=== PATIENT | female | born 1990 | race Caucasian/White ===

== ENCOUNTER 2019-09-07 22:23 | Outpatient (REF) | payer MEDICAID, SELFPAY ==
[2019-09-07 19:25] LABS: HCT 39.8 % (36.0-46.0); HGB 13.5 g/dL (12.0-15.5); Mean Corp. HGB Concentration 33.9 g/dL (32.0-36.0); Mean Corpuscular Hemoglobin 31.8 pg (27.0-33.0); Mean Corpuscular Volume 93.6 fL (80-95); Mean Platelet Volume 10.3 fL (8.0-11.0); Platelet Count 296 x1000/uL (130-400); RBC 4.25 m/cumm (4.00-5.20); RBC Distribution Width 12.9 % (11.7-14.6); White Blood Cell Count 10.66 k/cumm (4.4-10.8)
[2019-09-07 19:32] LABS: ALT 52 U/L (14-59); AST 39 U/L (15-37); Alkaline Phosphatase 81 U/L (46-116); Anion Gap 11.1 mmol/L (3-11); BUN 11 mg/dL (7-18); Bilirubin, Total 0.3 mg/dL (0.2-1.0); CO2 22.9 mmol/L (21.0-32.0); CREATININE 0.41 mg/dL (0.55-1.02); Calcium 9.2 mg/dL (8.5-10.1); Chloride 100 mmol/L (98-107); Glucose 74 mg/dL (74-106); Potassium 4.4 mmol/L (3.5-5.1); Sodium 134 mmol/L (136-145); Total Protein 6.7 g/dL (6.4-8.2)
[2019-09-07 22:15] LABS: PROTEIN 8.8 mg/dL
[2019-09-07 22:16] LABS: COMMENT (LAB VIEW ONLY) 44.55 mg/dL; Prot/Crea Ur Ratio 0.19
== END 2019-09-07 22:43 ==
LOC: LBN 22:23
PROVIDERS: Visit Provider Advanced Practice Midwife
DX: Z34.91 Encounter for supervision of normal pregnancy, unspecified, first trimester (principal)
CPT/HCPCS: 80053; 85027; 82565; 84156; 84550

== ENCOUNTER 2019-09-15 03:47 | Outpatient (CLI) | payer MEDICAID, SELFPAY ==
[2019-09-15 12:19] LABS: Glucose,1 Hr (Glucola) 105 mg/dL (80-140)
[2019-09-15 13:06] LABS: *AMPHETAMINES SCREEN URINE Negative (Negative); *BARBITURATES SCREEN URINE Negative (Negative); *BENZODIAZEPINES SCREEN URINE Negative (Negative); Cannabinoids THC Negative (Negative); Cocaine Screen,Urine Negative (Negative); METHADONE URINE SCREEN Negative (Negative); OPIATES URINE SCREEN Negative (Negative)
[2019-09-15 13:16] LABS: Tricyclic Antidepressants Negative (Negative)
[2019-09-15 13:35] LABS: ALT 35 U/L (14-59); AST 19 U/L (15-37); Albumin 2.8 g/dL (3.4-5.0); Alkaline Phosphatase 81 U/L (46-116); Anion Gap 8.4 mmol/L (3-11); BUN 7 mg/dL (7-18); Bilirubin, Total 0.3 mg/dL (0.2-1.0); CO2 24.6 mmol/L (21.0-32.0); CREATININE 0.51 mg/dL (0.55-1.02); Chloride 104 mmol/L (98-107); Glucose 96 mg/dL (74-106); Sodium 137 mmol/L (136-145)
[2019-09-16 11:50] LABS: Rubella IgG Ab (UVM) Negative (See Note); Varicella IgG Antibody Negative (See Note)
[2019-09-16 12:50] LABS: HIV-1/2 Ag & Ab Screen Negative (Negative); Hepatitis C Ab w Rflx HCV PCR Negative (Negative)
[2019-09-16 13:52] LABS: Hepatitis B Surface Ag Negative (Negative)
[2019-09-16 15:24] LABS: Syphilis Total Ab w/Reflex Nonreactive (Nonreactive)
[2019-09-26 01:53] LABS: Buprenorphine Negative
== END 2019-09-15 04:07 ==
PROVIDERS: Advanced Practice Midwife; Visit Provider Advanced Practice Midwife
DX: Z34.91 Encounter for supervision of normal pregnancy, unspecified, first trimester (principal); Z11.4 Encounter for screening for human immunodeficiency virus [HIV]; Z11.59 Encounter for screening for other viral diseases; Z01.84 Encounter for antibody response examination
CPT/HCPCS: 36415; 80053; 80307; 82950; 86787; 86803; 86850; 86900; 86901; 87340; 87389; 84443; 86762; 86780

== ENCOUNTER 2019-11-09 18:03 | Outpatient (REF) | payer MEDICAID, SELFPAY | END 2019-11-09 18:23 | LOC: LBN 18:03 | PROVIDERS: Visit Provider Advanced Practice Midwife | DX: Z34.90 Encounter for supervision of normal pregnancy, unspecified, unspecified trimester (principal) | CPT/HCPCS: 87081 ==

== ENCOUNTER 2019-11-25 01:45 | Outpatient (CLI) | payer MEDICAID, SELFPAY ==
--- NOTE | 2019-11-25 06:30 | DI.US_ITS ---
EXAM: US OB NI WEIGHT CLINICAL HISTORY: s<d,z34.90. TECHNIQUE: Transabdominal obstetrical ultrasound performed. COMPARISON: No exams were available for comparison FINDINGS: Transabdominal obstetrical ultrasound performed. FINDINGS: Number of fetuses: One. position: Cephalic Placental location: Anterior. No evidence of previa. BIOMETRIC DATA: EFW: 2950 grms 13% Composite Age: 37 weeks EDC: 12/16/2019 Heart Rate: 149BPM Amniotic fluid index: 5 cm. Visually, the amniotic fluid is lower limits of normal to below normal. IMPRESSION: 1. Single live intrauterine gestation as above. 2. Estimated weight is 2950gms. 3. Amniotic fluid index is 5 cm. Visually at the lower limits of normal to below normal. DATA REPOSITORY:
== END 2019-11-25 02:05 ==
PROVIDERS: Visit Provider Advanced Practice Midwife
DX: Z34.93 Encounter for supervision of normal pregnancy, unspecified, third trimester (principal)
CPT/HCPCS: 76816

== ENCOUNTER 2019-11-30 09:37 | Outpatient (CLI) | payer MEDICAID, SELFPAY ==
--- NOTE | 2019-11-30 | DI.US_ITS ---
EXAM: US OB NI UMBILICAL ARTERY CLINICAL HISTORY: Gestational hypertension. COMPARISON: No exams were available for comparison TECHNIQUE: Transabdominal obstetrical ultrasound performed. FINDINGS: Sonographic images demonstrate a single intrauterine gestation in cephalic position. Plancenta: Anterior, grade 2 Predicted gestational age: 39 weeks 5 days. Estimated date of delivery 02 December 2019: heart rate motion is Dopplered at: 158 BPM. Amniotic fluid index: 5.6 cm cm. Umbilical artery Doppler: 97/44 = S/D 2.2, PI 0.85, RI 0.55 96/48= S/D 2.0, PI 0.69, RI 0.50. The findings are within the normal range, near or below the 50th p ercentile. IMPRESSION: Umbilical artery Doppler measurements are within the normal range. DATA REPOSITORY:
== END 2019-11-30 09:57 ==
PROVIDERS: Visit Provider Advanced Practice Midwife
DX: O41.03X0 Oligohydramnios, third trimester, not applicable or unspecified (principal); Z3A.39 39 weeks gestation of pregnancy
CPT/HCPCS: 76816; 76820; 59025

== ENCOUNTER 2019-11-30 15:24 | Inpatient (IN) | payer MEDICAID, SELFPAY ==
[2019-11-30] MEDS: miSOPROStol 25 MCG TAB 50 MCG PO ×2 (19:15→23:25)
[2019-11-30 20:37] LABS: Abs Immature Grans 0.15 10^3/uL (0.0-0.06); Absolute Basophil Count 0.03 10^3/uL (0.0-0.2); Absolute Eosinophil Count 0.16 10^3/uL (0.0-0.7); Absolute Lymphocyte Count 2.03 10^3/uL (1.2-3.4); Absolute Monocyte Count 0.91 10^3/uL (0.1-0.8); Absolute Neutrophil Count 7.22 10^3/uL (1.2-6.7); Basophils % 0.3; Eosinophils % 1.5; HGB 13.8 g/dL (11.2-15.7); Immature Grans % 1.4; Lymphocytes % 19.3; MCH 32.9 pg (27.0-33.0); MCHC 35.4 % (32.0-36.0); MCV 93.1 fL (80-95); Monocytes % 8.7; Neutrophils % 68.8; Nucleated RBC 0 %; Platelet Count 277 10^3/uL (130-400); RBC 4.19 10^6/uL (3.93-5.22); RDW 12.4 % (11.7-14.6); RDW-SD 42.4 fL
[2019-11-30 20:59] LABS: ALT 17 U/L (14-59); AST 15 U/L (15-37); Albumin 2.6 g/dL (3.4-5.0); Alkaline Phosphatase 130 U/L (46-116); Anion Gap 11.8 mmol/L (3-11); BUN 14 mg/dL (7-18); Bilirubin, Total 0.2 mg/dL (0.2-1.0); CO2 22.2 mmol/L (21.0-32.0); CREATININE 0.57 mg/dL (0.55-1.02); Calcium 9.1 mg/dL (8.5-10.1); Chloride 103 mmol/L (98-107); Glucose 103 mg/dL (74-106); Potassium 3.9 mmol/L (3.5-5.1); Sodium 137 mmol/L (136-145); Total Protein 6.5 g/dL (6.4-8.2); Uric Acid 3.3 mg/dL (2.6-6.0)
[2019-11-30] MEDS: Zolpidem 5 MG TAB 10 MG PO (23:35)
[2019-12-01] MEDS: miSOPROStol 50 MCG TAB (07:44)
[2019-12-01] MEDS: Normal Saline Flush 10 ML SYR (11:14)
[2019-12-01] MEDS: Povidone-Iodine Soln. 118 ML BTL (11:15)
[2019-12-01] MEDS: miSOPROStol 50 MCG TAB PO (12:19)
[2019-12-01 13:02] LABS: PROTEIN 29.9 mg/dL
[2019-12-01 13:09] LABS: Prot/Crea Ur Ratio 0.24
[2019-12-01] MEDS: Normal Saline Flush 10 ML SYR IVP (19:15)
[2019-12-01] MEDS: Lactated Ringers 1,000 ML 125 ML IV (19:25)
[2019-12-01] MEDS: Oxytocin/Normal Saline 30 UNITS/500 ML BAG IV (20:20)
[2019-12-02 08:36] LABS: COVID-19 RT-PCR UVMMC Result Negative (Negative)
[2019-12-02] MEDS: fentaNYL 100 MCG/2 ML VIAL (09:09)
[2019-12-02] MEDS: Bupivacaine 0.25% Pres-Free 30 ML VIAL (09:10)
[2019-12-02] MEDS: FentaNYL/ROPIvacaine 2 mcg/ml and 0.1% 200 ML CADD Cassette EP ×2 (09:15→09:18)
[2019-12-02] MEDS: Ibuprofen 600 MG TAB PO (17:02)
[2019-12-02] MEDS: Normal Saline Flush 10 ML SYR IVP (17:57)
[2019-12-02] MEDS: Acetaminophen 325 MG TAB 650 MG PO (21:29)
[2019-12-02] MEDS: Hamamelis Leaf/Glycerin 100 EACH BOX PR (21:30)
[2019-12-03 08:00] LABS: HCT 36.5 % (36.0-46.0); HGB 12.2 g/dL (11.2-15.7); MCHC 33.4 % (32.0-36.0); MCV 95.8 fL (80-95); MPV 9.9 fL (8.0-11.0); Platelet Count 226 10^3/uL (130-400); RBC 3.81 10^6/uL (3.93-5.22); RDW 12.6 % (11.7-14.6); RDW-SD 43.3 fL; WBC 10.49 10^3/uL (4.4-10.8)
[2019-12-03] MEDS: Ibuprofen 600 MG TAB PO ×2 (09:05→15:59)
[2019-12-03] MEDS: Acetaminophen 325 MG TAB 650 MG PO ×2 (12:33→15:59)
[2019-12-03] MEDS: Docusate Sodium 100 MG CAP PO (15:59)
[2019-12-04] MEDS: Ibuprofen 600 MG TAB PO ×2 (02:26→08:08)
[2019-12-04] MEDS: Acetaminophen 325 MG TAB 650 MG PO (08:08)
== END 2019-12-04 11:25 | disposition home or self-care (01) | DRG 768 ==
PROVIDERS: Advanced Practice Midwife; Admitting Provider Advanced Practice Midwife; Visit Provider Advanced Practice Midwife
DX: O62.1 Secondary uterine inertia (principal); Z37.0 Single live birth; O41.03X0 Oligohydramnios, third trimester, not applicable or unspecified; Z3A.39 39 weeks gestation of pregnancy; O77.0 Labor and delivery complicated by meconium in amniotic fluid; O70.0 First degree perineal laceration during delivery; O76 Abnormality in fetal heart rate and rhythm complicating labor and delivery; Z11.59 Encounter for screening for other viral diseases; Z28.3 Underimmunization status; Z79.82 Long term (current) use of aspirin
CPT/HCPCS: 36415; 80053; 85027; 86850; 86900; 86901; U0003; 82565; 84156; 84550; 85025; J3010; J3490

== ENCOUNTER 2020-06-14 03:06 | Outpatient (CLI) | payer MEDICAID, SELFPAY ==
--- NOTE | 2020-06-14 | DI.US_ITS ---
EXAM: US PELVIS TRANSVAGINAL CLINICAL HISTORY: IUD CHECK,PELVIC PAIN, IUD MIGRATION,R10.2,T83.32XA,Z30.431. TECHNIQUE: Transabdominal and transvaginal pelvic ultrasound was performed using standard protocol. COMPARISON: No previous for comparison. FINDINGS: KIDNEYS: Kidneys are symmetric in size. No evidence of renal calculi. No evidence of hydronephrosis. No renal mass or cyst identified. UTERUS: Position: Anteverted. Size: 7.2 long by 3.7 AP by 4.3 transverse cm Endometrium: 1.0 cm. Normal for patient's menstrual status. There is an IUD in good position. Myometrium: Unremarkable. Cervix: Unremarkable. OVARIES: Right: 1.9 x 2.8 x 7.2 cm Cyst or mass: Small functional cysts are present. Left: 4.8 x 2.3 x 4.2 cm Cyst or mass: Functional cysts are present. The largest measures 1.7 cm. DOPPLER: Color: Symmetric and uniform flow to both ovaries. No hyperemia. Duplex: Normal ovarian arterial waveforms visualized. CUL-DE-SAC: Free fluid: None. Other: None. IMPRESSION: 1. Normal sonographic appearance of the kidneys. 2. Normal-appearing uterus with endometrial stripe within normal limits. 3. IUD is in good position. 4. Unremarkable bilateral ovaries. DATA REPOSITORY:
== END 2020-06-14 03:26 ==
PROVIDERS: Visit Provider Advanced Practice Midwife
DX: R10.2 Pelvic and perineal pain (principal); Z97.5 Presence of (intrauterine) contraceptive device
CPT/HCPCS: 76830; 76856

== ENCOUNTER 2020-12-14 12:31 | Emergency (ER) | payer MEDICAID, SELFPAY ==
[2020-12-14 12:38] VITALS: BP 143/73; PULSE 75; RESP 16; TEMP 36.6; O2SAT 97
[2020-12-14] MEDS: Ibuprofen 600 MG TAB PO (12:48)
--- NOTE | 2020-12-14 12:56 | W.ED.GENAD ---
Discharge Plan Disposition Patient Disposition: HOME Condition: Stable Discharge Details Clinical Impression: Sprain of ankle, left Primary Care Provider: Unknown,Unknown ED Provider: Emeka Malone Home Meds and New Rx's Prescriptions: Continued ParaGard T 380A 380 square mm intrauterine device 1 device intrauterine ONCE RF: 0 Discharge Instructions Instructions: Ankle Sprain (ED) Additional Instructions: you can take 1000mg tylenol and 600mg ibuprofen every 6 hours for pain as needed if you still have pain in a week follow up with a primary care provider if you have severe worsening pain or new pain such as chest pain or abdomen pain return to the emergency department Medical Decision Making 30 yo female comes in with left ankle pain. She states she was hiking and on the last stretch coming back down she tripped on a rock and inverted her ankle, denies loc or head trauma. Has no head pain, neck pain, chest or abdomen pain, only has pain in the left ankle. She has swelling of the lateral ankle, no pain over the metatarsals and is able to bear weight though with pain and can plantar flex fully so doubt achilles injury. Normal sensation and pulses. Suspect sprain vs fracture, will obtain xrays xray negative, remains stable and given she can bear weight do not feel ct indicated. Will place in walking boot and advised if pain continues to follow up with pcp Differential Diagnosis Differential Diagnosis: sprain, fracture, contusion Imaging Data Radiologic Study: Attestation: I personally reviewed and interpreted this imaging study as follows: Imaging: X-Ray Radiologist's impression: FINDINGS: Three views were obtained. There is no evidence of acute fracture or dislocation. The ankle mortise appears well maintained. IMPRESSION: HPI General Mode of arrival: ambulatory. Date/Time Provider Initiated Documentation: 12/14/20 12:33. Limitations to Documentation: no limitations. Information obtained by: patient. History of Present Illness 30 year old F presents to the emergency department with the chief complaint of left ankle pain, described as moderate, Quality is described as aching, and is localized to the left and lower extremity. Patient reports no radiation. Patient started experiencing this day(s) (1) and it has been constant. No relieving factors improve symptom(s), No exacerbating factors reported . Patient notes no other symptoms.. Patient did receive the following treatments prior to arrival, none Related Data Home Medications Medication Instructions Recorded Confirmed copper 380 square mm intrauterine 1 device INTRAUTERINE ONCE 05/23/20 12/14/20 device Allergies Allergy/AdvReac Type Severity Reaction Status Date / Time No Known Allergies Allergy Verified 12/14/20 12:41 General Stated Complaint: Orthopedic ED: 4 Review of Systems All systems reviewed & are unremarkable except as noted in HPI and below Constitutional Constitutional: Denies chills, Denies fever(s) and Denies weakness Cardiovascular Cardiovascular: Denies chest pain and Denies dyspnea Respiratory Respiratory: Denies cough and Denies dyspnea Gastrointestinal Gastrointestinal: Denies abdominal pain, Denies nausea and Denies vomiting Neurologic Neurologic: Denies weakness [facility] Medical History (Updated 12/14/20 @ 13:21 by Emeka Malone MD) 6 weeks follow-up 28 weeks gestation of Surgical History (Updated 09/07/19 @ 15:46 by Sangita Hitchcock CNM) H/O knee surgery Family History (Updated 09/07/19 @ 15:48 by Sangita Hitchcock CNM) Mother No problems noted. Father Substance abuse Maternal Grandmother Breast cancer Social History (Updated 11/30/19 @ 14:59 by Sangita Hitchcock CNM) Smoking/Tobacco Use Status: Never Second Hand Exposure: No Smoking risk assessment performed?: Yes Alcohol Intake: former Do you feel safe at home: Yes Do you feel safe in your relationship?: Yes History History 1 Para 1 Hx # Term Pregnancies 2 Multiple births Hx # Pregnancies Ectopic pregnancies AB induced Hx Number of Living Children 1 AB spontaneous Past Pregnancies Del. Date GA/Weeks # Outcome Route Wgt Sex Labor Lgth Anesthesia Location Prov Complic 12/02/19 40 No Successful vaginal 2693.205 g [facility] Hitchcock other Delivery Date: 12/02/19 Pt induced for oligohydramnios. Occasional early and variable decellerations occurred with resting. After sleep, she had pelvic pressure. Fully dilated with bulging bag of water. After 15 minutes, bag of water was visible at introitus--it was artificially ruptured as color appeared yellow. Moderate amount of meconium-stained fluid. FHR remained 120s in second stage with occasional variable decellerations with pushing. Baby boy delivered in MARK position. Small hymenal tear reapproximated with one suture. Bilateral periurethreal lacerations noted and left was repaired with 2 3-0 vicryl sutures under epidural analgesia. Placenta delivered spontaneously. De La Torre,Ronda Exam Const General: no acute distress Orientation: alert HENMT Head: normal to inspection Ears: external ears normal General nose exam: external nose normal Mouth: moist mucous membranes Eyes General: appearance normal, both eyes and all related structures Neck Neck: normal visual inspection Resp Effort & Inspection: normal respiratory effort and able to speak in complete sentences Cardio Rate: regular rate Skin General skin exam: no rashes or lesions noted Neuro General: patient alert and patient oriented x3 Extrem General: capillary refill normal Psych Mental Status: mental status grossly normal Course Vital Signs Vital signs: Vital Signs Temperature 36.6 C 12/14/20 12:38 Pulse 75 12/14/20 12:38 Respiratory Rate 16 12/14/20 12:38 Blood Pressure 143/73 H 12/14/20 12:38 Pulse Oximetry 97 12/14/20 12:38 Temperature 36.6 C 12/14/20 12:38 Temperature Source Skin 12/14/20 12:38 Pulse 75 12/14/20 12:38 Respiratory Rate 16 12/14/20 12:38 Respiratory Effort Non-Labored 12/14/20 12:38 Blood Pressure 143/73 H 12/14/20 12:38 Blood Pressure Position Sitting 12/14/20 12:38 Pulse Oximetry 97 12/14/20 12:38 Oxygen Delivery Method Room Air 12/14/20 12:38 Oxygen Flow Rate 0 12/14/20 12:38 Pain Level 8 12/14/20 12:49
--- NOTE | 2020-12-14 13:02 | DI.RAD_ITS ---
Exam(s) XR ANKLE LT COMPLETE EXAM: XR ANKLE LT COMPLETE CLINICAL HISTORY: pain s/p fall TECHNIQUE: COMPARISON: No exams were available for comparison FINDINGS: Three views were obtained. There is no evidence of acute fracture or dislocation. The ankle mortise appears well maintained. IMPRESSION: RADIATION DOSE DELIVERED: Total DLP
== END 2020-12-14 13:35 | disposition home or self-care (01) ==
LOC: ER 13:36
PROVIDERS: Emergency Provider Emergency Medicine
DX: S93.492A Sprain of other ligament of left ankle, initial encounter (principal); X50.1XXA Overexertion from prolonged static or awkward postures, initial encounter
CPT/HCPCS: 99283; 73610

== ENCOUNTER 2023-11-16 15:58 | Emergency (ER) | payer OTHER, SELFPAY ==
[2023-11-16 16:14] VITALS: BP 154/78; PULSE 88; RESP 16; TEMP 36.5; O2SAT 98
--- NOTE | 2023-11-16 16:30 | DI.RAD_ITS ---
Exam(s) XR KNEE RT 3V AP,LAT,NOLAN EXAM: XR KNEE RT 3V AP,LAT,NOLAN CLINICAL HISTORY: right knee pain. TECHNIQUE: 2D digital imaging was performed. Three views. COMPARISON: No exams were available for comparison FINDINGS: The exam is limited by the patient being unable to straighten the knee. The AP and notch views are s everely limited. No gross abnormality is seen on the lateral view. DATA REPOSITORY: RADIATION DOSE DELIVERED:
--- NOTE | 2023-11-16 19:12 | ED.GENADUL_ITS ---
Discharge Plan Disposition Patient Disposition: Home Condition: Stable Discharge Details Clinical Impression: Right knee pain Primary Care Provider: Unknown,Unknown ED Provider: Sj Slaughter Home Meds and New Rx's Prescriptions: No Action Plus Vitamin-Mineral 27 mg iron- 1 mg tablet 1 tab PO DAILY Qty: 90 5RF Patient Comments: IUD removed, will start when Discharge Instructions Instructions: Knee pain Additional Instructions: You were seen in the emergency department for your right knee pain, you have a history of prior meniscal repair your physical exam is consistent with meniscus injury, you cannot straighten your leg, we are providing you with a straight leg knee immobilizer on the off chance that your likely partial meniscal tear briefly resolves and you can straighten your leg, I recommend you place yourself in a straight leg knee brace at that time, I have provided you with crutches she can perform partial weightbearing as tolerated. Please use therapeutic dosing of Tylenol (acetamenophen) & Advil (ibuprofen) in an alternating fashion as follows: Take 1000mg of Tylenol every 6 hours without missing doses- that is 4 times per day. Half-Way in between the Tylenol dosings, take 400-600mg of Advil also on a 6 hour schedule, that is also 4 times per day. The daily maximum dosing of Tylenol is 4000mg, and the daily maximum dosing of Advil is 2400mg. This is safe to do for weeks. Please note that some common cold medications & prescription pain medications may contain acetamenophen and you need to read OTC drug labels and factor that in to maximum daily dosings. -You may substitute out ibuprofen for 440 mg of Aleve every 12 hours for 1 to 2 weeks and then pull back to 220 mg twice daily. Please rest, ice, compress and elevate the knee often, I have referred you to our orthopedic practice here at the hospital you should hear from them the next few days. Referrals: [facility] [Provider Group] Discharge Data Discharge Date/Time-TO BE ENTERED AT DEPARTURE: 11/16/23 19:55 HPI General Date/Time Provider Initiated Documentation: 11/16/23 16:24 . HPI Narrative: 33 year-old female presents to ED today by POV/wheelchair with a chief complaint of R knee pain- history of R lateral meniscus repair in youth, states her knee locked up on her withot trauma, having severe pain when she tries to extend the knee that causes nausea. Quality described as feels like her old meniscus injury, locks in certain positions, unable to straighten, no radiation to numbness/tingling, severe knee swelling, endorses severre pain with ambulation, is R-foot dominant, denies skin changes distally, no recent tick bites. Severity is described as 8/10 with ambulation. Palliating factors include icing it. Provoking factors include weight-bearing. Patient not anticoagulated. Related Data Home Medications ?Medication ?Instructions ?Recorded ?Confirmed vitamin no.180-ferrous 1 tab PO DAILY #90 tabs 10/02/23 11/16/23 fumarate 27 mg-folic acid 1 mg tablet ( Plus Vitamin-Mineral) Previous Rx's ?Medication ?Instructions ?Recorded vitamin no.180-ferrous 1 tab PO DAILY #90 tabs 10/02/23 fumarate 27 mg-folic acid 1 mg tablet ( Plus Vitamin-Mineral) Allergies Allergy/AdvReac Type Severity Reaction Status Date / Time No Known Allergies Allergy Verified 11/16/23 16:13 General Stated Complaint: Orthopedic ED: 4 Review of Systems All systems reviewed & are unremarkable except as noted in HPI and below Exam Narrative Exam Narrative: GENERAL APPEARANCE: Well-nourished, non-toxic, awake and alert, atraumatic, no acute distress. SKIN: Warm, pink, dry, intact, without rashes/lesions/ulcerations. HEAD: Normocephalic, atraumatic, normal hair distribution for gender/age. EYES: Normal conjunctiva, no exudates on lids/lashes. ENT: Nares patent, no circumoral cyanosis, no facial swelling NECK: Supple, trachea midline, painless cervical ROM. LUNGS/CHEST: Non-labored respirations, normal A/P diameter, symmetrical expansion, no chest wall deformity HEART (CV/PV): Regular rate, R dorsalis pedis pulse 2+, no peripheral edema, no JVD. ABDOMEN: Soft, non-distended, no guarding. MSK: Normal ROM, no swelling/deformity to bilateral UEs or LEs, moving all extremities without weakness, no cyanosis, spine midline without tenderness, normal curvature, Chay positive in the right knee, no ligamentous laxity with anterior drawer, no ligamentous laxity with varus valgus forces, diffuse joint line tenderness without overt swelling or warmth to touch, no pain with passive range of motion, neurovascularly intact distal NEURO: Mental Status AAOx4 - alert to person, place, time, events No facial droop, no forehead involvement. Motor: No focal weakness - strength 5/5 in bilateral UEs and LEs, proximal and distal, symmetric. Sensory: sensation intact to light touch globally. Gait normal: patient ambulated without ataxia into ED room. PSYCH: euthymic, cooperative, pleasant, appropriate speech Course Vital Signs Vital signs: Vital Signs Temperature 36.5 C 11/16/23 16:14 Pulse 88 11/16/23 16:14 Respiratory Rate 16 11/16/23 16:14 Blood Pressure 154/78 H 11/16/23 16:14 Pulse Oximetry 98 11/16/23 16:14 Temperature 36.5 C 11/16/23 16:14 Temperature Source Temporal Artery Scan 11/16/23 16:14 Pulse 88 11/16/23 16:14 Respiratory Rate 16 11/16/23 16:14 Respiratory Effort Normal, Non-Labored 11/16/23 16:15 Blood Pressure 154/78 H 11/16/23 16:14 Blood Pressure Position Sitting 11/16/23 16:14 Pulse Oximetry 98 11/16/23 16:14 Oxygen Delivery Method Room Air 11/16/23 16:14 Oxygen Flow Rate 0 11/16/23 16:14 Pain Level 8 11/16/23 16:14 Medical Decision Making This dictation utilizes [id number] dictation software and may contain unedited grammatical errors. 33 year-old female presents to ED today by POV/wheelchair with a chief complaint of R knee pain- history of R lateral meniscus repair in youth, states her knee locked up on her withot trauma, having severe pain when she tries to extend the knee that causes nausea. Quality described as feels like her old meniscus inj ury, locks in certain positions, unable to straighten, no radiation to numbness/tingling, severe knee swelling, endorses severre pain with ambulation, is R-foot dominant, denies skin changes distally, no recent tick bites. Severity is described as 8/10 with ambulation. Palliating factors include icing it. Provoking factors include weight-bearing. Patients' medical history: Prior history of of right meniscus surgery, underwent repair not meniscectomy. Family and social history: Noncontributory. Pertinent exam findings / vital signs include Chay positive in the right knee, no ligamentous laxity with anterior drawer, no ligamentous laxity with varus valgus forces, diffuse joint line tenderness without overt swelling or warmth to touch, no pain with passive range of motion, neurovascularly intact distal. Differential / pathologies of concern include fracture, sprain/strain, meniscus tear, internal knee injury, unlikely Lyme arthritis or septic arthritis. Diagnostic studies of: -XR R knee-no acute fracture seen. Interventions of: -Provided a knee immobilizer and crutches, advised the patient to obtain an [id number] knee immobilizer or knee sleeve if she could not straighten her leg but to use the 1 provided if she did have a brief resolution of her limited range of motion and knee locking to place it in extension and keep it immobilized, recommend RICE therapy and therapeutic dosing Tylenol and ibuprofen. ED Course/Assessment/Plan: 33-year-old female presents with right knee pain, history of right meniscus injury with meniscus repair to the lateral aspect of her right meniscus, do not suspect acute fracture or trauma, does not have any concerning findings for septic arthritis or Lyme arthritis, no vascular pathology suspected, I recommend the patient follow-up with orthopedics for likely arthroscopy or MRI, recommend RICE therapy and therapeutic dosing of Tylenol and ibuprofen and crutches for partial weightbearing as tolerated as well as provided knee immobilization, strict return criteria for severe increase in swelling and pain, pain with fever, warmth to touch to right knee with severe swelling. Findings not consistent with septic arthritis, Lyme arthritis, fracture, neurovascular compromise. Disposition of right knee pain. Patient verbalized understanding of the plan and return to ED criteria and engaged in shared decision making. Medical Records Medical records reviewed: Yes I reviewed the patient's medical records. Imaging Data Radiologic Study: Attestation: I personally reviewed and interpreted this imaging study as follows: Imaging: X-Ray Radiologist's impression: EXAM: XR KNEE RT 3V AP,LAT,NOLAN CLINICAL HISTORY: right knee pain. TECHNIQUE: 2D digital imaging was performed. Three views. COMPARISON: No exams were available for comparison FINDINGS: The exam is limited by the patient being unable to straighten the knee. The AP and notch views are severely limited. No gross abnormality is seen on the lateral view. Quality:SDOH Health Related Social Needs: No Data to Display PFSH All Active Problems (Updated 09/07/19 @ 15:46 by Sangita Hitchcock CNM) Right knee pain (Acute) Encounter for IUD removal (Acute) Sprain of ankle, left (Acute) IUD migration (Acute) Pelvic pain (Acute) disorder, condition (Acute) decreased milk supply Contraceptive management (Acute) H/O knee surgery (Acute) Medical History (Updated 11/16/23 @ 19:32 by BRENDA Masters) IUD check up 6 weeks follow-up 28 weeks gestation of Family History (Updated 09/07/19 @ 15:48 by Sangita Hitchcock CNM) Mother No problems noted. Father Substance abuse Maternal Grandmother Breast cancer Social History (Updated 11/30/19 @ 14:59 by Sangita Hitchcock CNM) Smoking/Tobacco Use Status: Never Second Hand Exposure: No Smoking risk assessment performed?: Yes Alcohol Intake: former Drug use: Never Substance use type: does not use Housing: house Do you feel safe at home: Yes Do you feel safe in your relationship?: Yes History History 2 Para 2 Hx # Term Pregnancies 2 Multiple births Hx # Pregnancies Ectopic pregnancies AB induced Hx Number of Living Children 1 AB spontaneous Past Pregnancies Del. Date GA/Weeks # Preg Succ Route Wgt Sex Labor Lgth Anesth esia Location [facility] 12/02/19 40 No vaginal 2693.205 g Male [facility] other [facility] other Delivery Date: 12/02/19 Last Updated by: Ronda De La Torre RN Pt induced for oligohydramnios. Occasional early and variable decellerations occurred with resting. After sleep, she had pelvic pressure. Fully dilated with bulging bag of water. After 15 minutes, bag of water was visible at introitus--it was artificially ruptured as color appeared yellow. Moderate amount of meconium-stained fluid. FHR remained 120s in second stage with occasional variable decellerations with pushing. Baby boy delivered in MARK position. Small hymenal tear reapproximated with one suture. Bilateral periurethreal lacerations noted and left was repaired with 2 3-0 vicryl sutures under epidural analgesia. Placenta delivered spontaneously.
[2023-11-16 19:54] VITALS: BP 148/78; PULSE 80; RESP 14; O2SAT 99
== END 2023-11-16 19:55 | disposition home or self-care (01) ==
PROVIDERS: Emergency Provider Physician Assistant
DX: M25.561 Pain in right knee (principal)
CPT/HCPCS: 73562; 99283

== ENCOUNTER 2023-11-20 00:24 | Outpatient (CLI) | payer OTHER, SELFPAY ==
--- NOTE | 2023-11-20 07:00 | DI.MRI_ITS ---
Exam(s) MR LOWER JOINT RT WO EXAM: MR LOWER JOINT RT WO CLINICAL HISTORY: R KNEE INJURY,tear lateral meniscus,s83.281a TECHNIQUE: Multiplanar multisequence MRI of the knee was performed. COMPARISON: CR XR KNEE RT 3V AP,LAT,NOLAN from 11/16/2023 FINDINGS: There is some motion artifact on the images and this patient was not able to be scanned using the ded icated knee coil as she could not straighten his leg adequately EFFUSION: There is a moderate-large size knee joint effusion. There is no Blair cyst in the poplitea l fossa. No obvious loose intra-articular bodies. MARROW:There is no evidence of fracture, bone contusion, nor osteochondral defects.. There are no si gnificant osseous lesions. PATELLOFEMORAL COMPARTMENT: The quadriceps tendon is intact. The patellar ligament is intact. There is no significant thinning of the retropatellar cartilage. No evidence of fissure nor signific ant focal chondral defect. No osteochondral defect at this level.There is no intraosseous signal to suggest recent patellar dislocation. There are no patellar retinacular tears. CRUCIATE LIGAMENTS: The anterior cruciate ligament is intact.The posterior cruciate ligament is intac t. MEDIAL COMPARTMENT/MEDIAL MENISCUS: There are no tears of the medial meniscus evident.. There are no chondral defects, osteochondral defects, subarticular marrow edema, nor osteophytes evid ent. MEDIAL COLLATERAL LIGAMENT: Intact LATERAL COMPARTMENT/LATERAL MENISCUS: There is prominent tear in the posterior horn of the lateral me niscus and the posterior horn is flipped anteriorly. There is some regularity of the anterior horn a lso evident..There are no chondral defects, osteochondral defects, subarticular marrow edema, nor ost eophytes evident. ILIOTIBIAL BAND: Intact LATERAL COLLATERAL LIGAMENT COMPLEX: Fibular collateral ligament exhibits some abnormal signal 1 cm a nancy the fibular head. Biceps femora is tendon appears intact. Popliteus tendon component appears i ntact. IMPRESSION: 1. The main findings are in the lateral compartment where the there is significant tearing of the lat eral meniscus with the posterior horn being torn and flipped anteriorly. Some regularity of the ante rior horn is also noted but without displacement. There are no tears of the medial meniscus. 2. No cruciate ligament tears nor tears of the MCL. 3. Some increased signal is noted in the region of the fibular collateral ligament but this may be re lated to the lack of optimal coil use (patient was unable to straighten leg adequately for use of ded icated knee coil). The biceps femora is component and popliteus tendon component of the LCL complex appear intact. 4. Joint effusion noted. No Blair cyst. No loose intra-articular bodies evident. No evidence of bone contusion. DATA REPOSITORY:
== END 2023-11-20 00:44 ==
PROVIDERS: Visit Provider Student in an Organized Health Care Education/Training Program
DX: S83.281A Other tear of lateral meniscus, current injury, right knee, initial encounter (principal); X58.XXXA Exposure to other specified factors, initial encounter
CPT/HCPCS: 73721

== ENCOUNTER 2023-11-27 07:15 | Day surgery (SDC) | payer OTHER, SELFPAY ==
[2023-11-27] VITALS (26 sets, daily range): BP systolic 124–145; BP diastolic 64–98; PULSE 60–86; RESP 8–20; TEMP 36.2–36.6; O2SAT 95–100; BMI 33.0
--- NOTE | 2023-11-27 07:10 | PDOC.DSDIS_ITS ---
Date of service: 11/27/23 Time of Service: 13:00 Discharge Plan Disposition Patient Disposition: Home Condition: Stable Discharge Details Attending Provider: Tony Giron Primary Care Provider: None,None Home Meds and New Rx's Prescriptions: New naproxen 250 mg tablet 250 - 500 mg PO BID PRNQty: 40 0RF Rx Instructions: take with a meal aspirin 81 mg tablet,delayed release (DR/EC) 81 mg PO DAILY 14 Days Qty: 14 0RF oxycodone 5 mg tablet 5 - 10 mg PO Q4H MDD 30 mg PRN (Reason: moderate to severe pain) Qty: 18 0RF Continued Plus Vitamin-Mineral 27 mg iron- 1 mg tablet 1 tab PO DAILY Qty: 90 5RF Patient Comments: IUD removed, will start when Discharge Instructions Additional Instructions: Surgery: Right knee arthroscopy with revision lateral meniscus repair (inside out & all inside), intercondylar microfracture as bone marrow stimulation, and medial femoral condyle chondroplasty Activity: Nonweightbearing with crutches for the next 2 weeks. Use knee brace for support while ambulatory. Seated/ non-weight bearing flexion 0-90 degrees maximum for 6 weeks. Restore full knee extension as soon as possible. Protected weight bearing in full extension-only for weeks 2-8 weeks. Use brace as needed to protect and maintain knee straight. 120 degrees maximum flexion for 8 weeks. Spin/bike after 10 weeks. No weighted deeper flexion (squats, lunges) for 12 weeks. CONSERVATIVE protocol. Prescriptions: Aspirin 81 mg take 1 daily to prevent a blood clot for 14 days, starting tomorrow Naproxen 250 mg take 1-2 every 12 hours with a meal as needed for moderate pain Oxycodone 5 mg take 1-2 every 4-6 hours as needed for severe pain You may use [id number] Tylenol (acetaminophen) as needed for mild pain. These pain medications may be taken all at once or in different combinations as needed. Also, recommend Colace (docusate) as a stool softener as surgery and pain medicine cause constipation. You may try [id number]-trigizo diphenhydramine (Benadryl) 25-50 mg nightly as a sleep aid Dressings: Leave dressing in place for 3 days. May then remove and leave open to air or cover incisions with Band-Aids. Leave the sticky Steri-Strips in place until they fall off or remove them after you shower. May shower after 5 days. Follow-up: 10-[address] Giron You may take off the leg compression stockings this evening at home. You may also leave them on a few days longer if you have a history of leg swelling or edema. Let us know right away if you develop any redness, drainage, fevers, chest pain, or trouble breathing. Do not drink alcohol or drive for at least 24 hours after anesthesia. Please call the office during business hours with any questions or concerns. Stand Alone Forms: Anesthesia Discharge Inst., Crutch Training Instructions, Stephanie Anthony (DSU) Referrals: Tony Giron MD [ [facility] STAFF PHYSICIAN] - 12/08/23 2:45 pm Discharge Orders Discharge Orders: Discharge Order (Routine); Ordered 11/27/23 Ordered By: Ceci West DS: Diagnosis Discharge Diagnosis (1) Tear of lateral meniscus of right knee: Status: Acute (2) Chondromalacia, right knee: Status: Acute
--- NOTE | 2023-11-27 07:20 | W.PM.OP ---
Date of service: 11/27/23 Time of Service: 10:00 Operative Note Operative Note DATE OF PROCEDURE: 11/27/23 PRE-OP DIAGNOSIS: Right knee 1. Recurrent bucket-handle lateral meniscus tear 2. Chondromalcia POST-OP DIAGNOSIS: same PROCEDURE: Right knee 1. Revision lateral meniscus repair, CPT #51871 2. Chondroplasty, CPT #08785: Medial femoral condyle 3. Intercondylar microfracture as bone marrow stimulation, CPT #28372 SURGEON: Tony Giron DRIER AND EVAPORATOR OPERATOR: Ceci West ANESTHESIA TYPE: Local By Surgeon and General LMA/ETT Refer to Anesthesia Record ESTIMATED BLOOD LOSS: 5 PATHOLOGY: none sent TOURNIQUET TIME: 0 Patient was transported to: PACU Patient's condition: stable Indications: Please see complete medical record for details. Findings: Exam under anesthesia: Readily full extension without any contracture or mechanical block to motion. Stable Carine. Stable varus valgus. Arthroscopic findings: Moderate anterior and suprapatellar synovitis. Mild patellofemoral chondromalacia. Isolated medial femoral condyle focal cartilage irregularity and small flap tearing. Moderate diffuse lateral compartment chondromalacia. Intact ACL. Apparent recurrent bucket-handle displaced lateral meniscus tear involving the majority of the posterior horn into the mid body. Old sutures posterior horn from previous repair. Reasonable displaced meniscal tissue quality although there was some degeneration more in the white zone. The displaced tissue was the majority of the red red-white and white zone with minimal peripheral capsular remnant. Procedure Description: In the operating room, general anesthesia was induced. The patient was positioned supine on the operating room table. All bony prominences were well-padded. Preoperative antibiotics were administered. The knee was prepped and draped in the usual sterile fashion. The correct patient, procedure, and side of the procedure were all verified prior to incision. Exam under anesthesia was performed. 10 cc of 0.25% bupivacaine containing epinephrine was infiltrated about the planned anteromedial and anterolateral knee arthroscopy portals. An additional 20 cc was infiltrated about the lateral previous inside out surgery site. The portals were established and a complete diagnostic arthroscopy was performed with relevant findings detailed above. The mechanical shaver was used to remove abundant synovium from the suprapatellar and anterior and to color areas. The torpedo shaver was then used to carefully complete a chondroplasty removing rough cartilage flaps about a small area of cartilage injury or irregularity and smoothing the remaining of the cartilage bed of the medial femoral condyle. The meniscus was readily reducible in the lateral compartment. The meniscus tissue was seemingly adequate. Although it was a recurrent tear, possibly relating to an incomplete healing from many years ago, the quality seems aviles on grasping and on reduction. It was not overly friable or degenerative. There were no progressive tears or complex nature through the displaced tissue. Without this part of the lateral meniscus, there would be almost none through the posterior horn into about the mid body. As there was already an incision from a prior inside-out repair, this was opened the distal portion and careful spreading done down to the capsule. There was some irregularity here from the prior capsular surgery and sutures. The peripheral margin and backside of meniscus tissue was thoroughly prepared for healing use the meniscus rasp as well as trephinated through the capsular area using the repair needle. Previous prominent knots and suture arthroscopically were removed with the shaver. Retractors were placed to protect the peroneal nerve with the auction assistant catching the needles which were delivered using the [employer] zone navigator system through the contralateral portal. In total, they were 3 vertical mattress sutures placed through the body to the posterior horn junction about anterior to the popliteus. With an additional central horizontal mattress place and sutures tied on the capsular side outside the knee. To complete repair of the posterior horn an additional 2 all inside fiber stitch devices were used with oblique configuration done to reduce and compress the meniscus posteriorly. There was good reduction and stable fixation of the meniscus on testing. The knee was copiously irrigated with arthroscopic fluid. Lastly, in order to optimize healing in this isolated and revision meniscus repair. The lateral wall anterior to the ACL was debrided with a small notchplasty and then multiple drilling done with the power pick as a microfracture for bone marrow stimulation. There was excellent bleeding from this area with inflow turned off. The knee was drained of arthroscopic fluid. The anteromedial and anterolateral portals were closed in 3-0 Monocryl in a buried interrupted fashion. 2-0 Monocryl buried interrupted followed by 3-0 Monocryl subcuticular running was used to close the lateral incision. Mastisol, Steri-Strips, and 4 x 4 gauze were applied over the incisions. The knee was then wrapped gently with an TATI comressive bandage. A knee immobilizer was placed with the knee in extension. The patient awoke from anesthesia without complication and was transferred to the recovery room in a stable condition.
[2023-11-27] MEDS: Lactated Ringers 1,000 ML 30 ML IV (08:02)
--- NOTE | 2023-11-27 08:28 | ANES.PREOP_ITS ---
General Info Date of Service Date Performed: 11/27/23 Height: 6 ft Weight: 110.6 kg Body Mass Index (BMI): 33.0 Surgical Procedure: Operation Date: 11/27/23 09:10 Proposed Procedure Side Surgeon p Knee Arthroscopy, Possible Lateral Meniscus Repair Right Tony Giron MD Meds Allergies and Home Medications Allergies Allergy/AdvReac Type Severity Reaction Status Date / Time No Known Allergies Allergy Verified 11/27/23 07:40 Home Medication ?Medication ?Instructions ?Recorded vitamin no.180-ferrous 1 tab PO DAILY #90 tabs 10/02/23 fumarate 27 mg-folic acid 1 mg tablet ( Plus Vitamin-Mineral) Current Visit Medications: Current Medications Generic Name Dose Route Start Last Admin Trade Name Freq PRN Reason Stop Dose Admin Acetaminophen 1,000 mg 11/27/23 07:20 Acetaminophen 500 Mg Tab PO 12/27/23 07:19 Q6H PRN PRN Droperidol 0.625 mg 11/27/23 08:16 Droperidol 5 Mg/2 Ml Vial IVP 12/27/23 08:15 DIRECTED PRN Nausea Ephedrine Sulfate 0 mg 11/27/23 08:16 Ephedrine 25 Mg/5 Ml Syringe IVP 12/27/23 08:15 DIRECTED PRN Fentanyl 0 mcg 11/27/23 08:16 Fentanyl 100 Mcg/2 Ml Vial IVP 12/27/23 08:15 DIRECTED PRN Hydromorphone HCl 0 mg 11/27/23 08:16 Hydromorphone 2 Mg/Ml Syr IVP 12/27/23 08:15 DIRECTED PRN Ringer's Solution 1,000 mls @ 30 mls/hr 11/27/23 06:00 11/27/23 08:02 IV 11/27/23 23:59 30 mls/hr INFUSION ARCENIO Administration Cefazolin Sodium/Dextrose 2 gm in 50 mls @ 100 mls/hr 11/27/23 06:00 Ancef Duplex IVPB 11/27/23 23:59 PREOP ARCENIO Tranexamic Acid/Sodium Chloride 1,000 mg in 100 mls @ 600 mls/hr 11/27/23 06:00 IVPB 11/27/23 23:59 PREOP ARCENIO IV Miscellaneous Supplies 1 each 11/27/23 06:00 Iv Access IV 11/27/23 23:59 DIRECTED ARCENIO Naloxone HCl 0 mg 11/27/23 08:16 Naloxone 0.4 Mg/Ml Vial IVP 12/27/23 08:15 PRN PRN Naproxen 250 - 500 mg 11/27/23 07:27 Naproxen 250 Mg Tab PO 12/27/23 07:26 BID PRN PRN Oxycodone HCl 0 mg 11/27/23 07:09 Oxycodone 5 Mg Tab PO 12/27/23 07:08 Q3H PRN PRN Pain Sodium Chloride 0 ml 11/27/23 06:00 Normal Saline Flush 10 Ml Syr IV 11/27/23 23:59 PRN PRN Sodium Chloride 0 ml 11/27/23 06:00 Normal Saline 10 Ml Vial IJ 11/27/23 23:59 DIRECTED PRN Sterile Water 0 ml 11/27/23 06:00 Water,Injection,Sterile 10 Ml Vial IJ 11/27/23 23:59 DIRECTED PRN PFSH Active Problems Active Problems: Problem Status Onset Code Tear of lateral meniscus of right knee Acute 11/16/23 S83.281A Right knee pain Acute M25.561 Encounter for IUD removal Acute Z30.432 Sprain of ankle, left Acute S93.402A IUD migration Acute T83.32XA Pelvic pain Acute R10.2 disorder, condition Acute O92.79 Contraceptive management Acute Z30.9 H/O knee surgery Acute Z98.890 Medical History Medical History IUD check up 6 weeks follow-up 28 weeks gestation of Tobacco Smoking/Tobacco Use Status: Never Second hand exposure: No Alcohol Alcohol Intake: current Alcohol intake frequency: holidays/special occasions only Substance Use Substance use: Never Substance use type: does not use Prental History History 2 Para 2 Hx # Term Pregnancies 2 Multiple births Hx # Pregnancies Ectopic pregnancies AB induced Hx Number of Living Children 1 AB spontaneous Past Pregnancies Del. Date GA/Weeks # Preg Succ Route Wgt Sex Labor Lgth Anesth esia Location [facility] 12/02/19 40 No vaginal 2693.205 g [facility] other Delivery Date: 12/02/19 Last Updated by: Ronda De La Torre RN Pt induced for oligohydramnios. Occasional early and variable decellerations occurred with resting. After sleep, she had pelvic pressure. Fully dilated with bulging bag of water. After 15 minutes, bag of water was visible at introitus--it was artificially ruptured as color appeared yellow. Moderate amount of meconium-stained fluid. FHR remained 120s in second stage with occasional variable decellerations with pushing. Baby boy delivered in MARK position. Small hymenal tear reapproximated with one suture. Bilateral periurethreal lacerations noted and left was repaired with 2 3-0 vicryl sutures under epidural analgesia. Placenta delivered spontaneously. Vital Signs and Lab Results Vital Signs Most Recent Vital Signs in EMR: Most Recent Vital Signs Temp Pulse Resp BP Pulse Ox 36.5 C 79 20 129/88 98 11/27/23 07:40 11/27/23 07:40 11/27/23 07:40 11/27/23 07:40 11/27/23 07:40 Point of Care Results Point of Care Results: POC- Test(urine) Negative 11/27/23 07:53 Lab Results Blood Type / Crossmatch: No Data to Display Complete Blood Count: 2 No Data to Display Complete Metabolic Panel: No Data to Display Liver Function Panel: No Data to Display Coagulation Panel: No Data to Display Cardiac Panel: No Data to Display Arterial Blood Gas: No Data to Display Venous Blood Gas: No Data to Display Pancreas Panel: No Data to Display Thyroid Panel: No Data to Display Infectious Disease: No Data to Display Blood Cultures: No Data to Display Toxicology Panel: No Data to Display Panel: No Data to Display Anesthesia Assessment and Plan Anesthesia History Personal History: No History of Anesthesia Complications Family History: No Family History of Anesthesia Complications Exercise Tolerance Exercise Tolerance: Metabolic Equivalents>4 Pertinent Negatives Pertinent Negatives: No Symptoms of GERD Cardiac & Pulmonary Exam Cardiac Exam: Normal S1/S2 Heart Sounds Pulmonary Exam: Clear Bilateral Breath Sounds Implantable Cardiac Device Does patient have a Pacemaker or an ICD?: No Airway Exam Known Difficult Airway: No Mallampati Class: 2 Mouth Opening: Normal (> 3cm) Thyromental Distance: Greater than 3 cm Neck Range of Motion: Full ROM Neck Circumference: Normal Teeth Condition: Normal Dentition ASA Classification ASA Score: ASA 2 Emergency Case?: No NPO Status NPO Status: NPO Clears >2 hours, Solids >8 hours Status Status: Negative HCG Anesthesia Plan Resuscitation Status: Full Code Anesthesia Technique: General Anesthesia Airway Planned: LMA Monitors Used: Standard Monitors
[2023-11-27] MEDS: ceFAZolin 2 GM/50 ML BAG IVPB (09:12)
[2023-11-27] MEDS: TRANEXAMIC ACID/SOD. CHL. 1,000 MG/100 ML BAG 600 MG IVPB (09:20)
[2023-11-27] MEDS: Bupivacaine 0.25% Pres-Free W/EPI 30 ML VIAL (09:40)
[2023-11-27] MEDS: EPINEPHrine 10 MG/10 ML ML (09:41)
[2023-11-27] MEDS: HYDROmorphone 2 MG/ML SYR IVP ×2 (12:01→12:13)
--- NOTE | 2023-11-27 13:16 | W.ANESPOSTOP ---
Postoperative Evaluation Date, Time and Location Date Performed: 11/27/23 Time Performed: 13:16 Patient Location: Day Surgery Unit Vital Signs Most Recent Imported Vital Signs: Most Recent Vital Signs Temp Pulse Resp BP Pulse Ox 36.2 C L 69 16 129/75 100 11/27/23 12:46 11/27/23 12:46 11/27/23 12:46 11/27/23 12:46 11/27/23 12:46 Pain Score Most Recent Pain Score: Most Recent Pain Score Pain Level 7 11/27/23 12:46 Assessment Mental Status: Awake (Alert & Oriented to Patient Baseline) Airway and Respiratory Function: Patent airway with normal (patient baseline) respiratory exam Cardiovascular Function: Hemodynamically Stable Hydration Status: Adequately Hydrated Nausea & Vomiting: No Nausea or Vomiting Pain: Pain is tolerable per patient Peripheral Nerve Block: Patient did not receive a nerve block
== END 2023-11-27 14:10 | disposition home or self-care (01) ==
LOC: SUR 07:16
PROVIDERS: Visit Provider Student in an Organized Health Care Education/Training Program
PROC: (CPT 29870; principal; 2023-11-27 09:00)
DX: S83.281A Other tear of lateral meniscus, current injury, right knee, initial encounter (principal); M94.261 Chondromalacia, right knee; X50.0XXA Overexertion from strenuous movement or load, initial encounter; Y99.0 Civilian activity done for income or pay
CPT/HCPCS: 29882; 29879; 81025; J0131; J0690; J1100; J1170; J1885; J2001; J2250; J2270; J2405; J2704; J3010

== ENCOUNTER 2024-07-07 16:16 | Outpatient (REF) | payer OTHER, SELFPAY | END 2024-07-07 16:17 | disposition home or self-care (01) | LOC: LBN 16:16 | PROVIDERS: Visit Provider Advanced Practice Midwife | DX: O26.891 Other specified pregnancy related conditions, first trimester (principal); R10.2 Pelvic and perineal pain; Z34.91 Encounter for supervision of normal pregnancy, unspecified, first trimester | CPT/HCPCS: 87086 ==

== ENCOUNTER 2024-08-12 02:51 | Outpatient (CLI) | payer MEDICAID, SELFPAY ==
[2024-08-12 14:41] LABS: Panorama Kit Sent via Fed Ex
[2024-08-12 14:48] LABS: Abs Immature Grans 0.03 10^3/uL (0.0-0.06); Absolute Basophil Count 0.03 10^3/uL (0.0-0.2); Absolute Eosinophil Count 0.11 10^3/uL (0.0-0.7); Absolute Lymphocyte Count 1.64 10^3/uL (1.2-3.4); Absolute Monocyte Count 0.43 10^3/uL (0.1-0.8); Absolute Neutrophil Count 5.18 10^3/uL (1.2-6.7); Basophils % 0.4 %; Eosinophils % 1.5 %; HCT 37.8 % (36.0-46.0); HGB 13.2 g/dL (11.2-15.7); Immature Grans % 0.4 %; Lymphocytes % 22.1 %; MCH 31.4 pg (27.0-33.0); MCHC 34.9 % (32.0-36.0); MCV 90 fL (80-95); Monocytes % 5.8 %; Neutrophils % 69.8 %; Platelet Count 313 10^3/uL (130-400); RBC 4.21 10^6/uL (3.93-5.22); RDW-SD 39.1 fL; WBC 7.42 10^3/uL (4.4-10.8)
[2024-08-12 15:43] LABS: TSH (W/Ref FT4) 0.71 uIU/mL (0.36-3.74)
[2024-08-13 08:48] LABS: HIV-1/2 Ag & Ab Screen Negative (Negative)
[2024-08-15 10:27] LABS: Hepatitis C Ab w Rflx HCV PCR Negative (Negative)
[2024-08-15 11:06] LABS: Varicella IgG Antibody Negative (See Note)
[2024-08-15 11:30] LABS: Rubella IgG Ab (UVM) Negative (See Note)
[2024-08-15 12:54] LABS: Hepatitis B Surface Ag Negative (Negative)
[2024-08-16 13:36] LABS: Syphilis IgG w/Reflex Nonreactive (Nonreactive)
[2024-08-22 13:04] LABS: Result Summary NEGATIVE; Specimen WB Whole Blood
== END 2024-08-12 02:52 | disposition home or self-care (01) ==
LOC: LBO 02:51
PROVIDERS: Visit Provider Advanced Practice Midwife
DX: Z34.91 Encounter for supervision of normal pregnancy, unspecified, first trimester (principal)
CPT/HCPCS: 36415; 81220; 81222; 86787; 86803; 86850; 86900; 86901; 87340; 87389; 83036; 84443; 85025; 86762; 86780

== ENCOUNTER 2024-08-12 14:07 | Outpatient (REF) | payer MEDICAID, SELFPAY ==
[2024-08-12 17:45] LABS: *AMPHETAMINES SCREEN URINE Negative (Negative); *BARBITURATES SCREEN URINE Negative (Negative); *BENZODIAZEPINES SCREEN URINE Negative (Negative); Cannabinoids THC Negative (Negative); Cocaine Screen,Urine Negative (Negative); METHADONE URINE SCREEN Negative (Negative); OPIATES URINE SCREEN Negative (Negative)
[2024-08-12 17:52] LABS: Tricyclic Antidepressants Negative (Negative)
[2024-08-15 10:06] LABS: Fentanyl Scr w/Rfx Confirm Negative ng/mL (<1)
[2024-08-15 12:29] LABS: Chlamydia Result Negative (Negative); GC Result Negative (Negative)
[2024-08-18 10:15] LABS: Buprenorphine Negative ng/mL (Cutoff: 5.0); Norbuprenorphine Negative ng/mL (Cutoff: 2.5)
== END 2024-08-12 14:08 | disposition home or self-care (01) ==
LOC: LBN 14:07
PROVIDERS: Visit Provider Advanced Practice Midwife
DX: Z34.91 Encounter for supervision of normal pregnancy, unspecified, first trimester (principal)
CPT/HCPCS: 80307; 80348; 87491; 87591; 87086

== ENCOUNTER 2024-10-03 02:40 | Outpatient (CLI) | payer MEDICAID, SELFPAY ==
--- NOTE | 2024-10-03 11:45 | DI.US_ITS ---
Exam(s) US OB 2-3 TRIMESTER EXAM: US OB 2-3 TRIMESTER CLINICAL HISTORY: 19 wk anatomy survey,z34.90. TECHNIQUE: Transabdominal and transvaginal obstetrical ultrasound performed. COMPARISON: US US OB 1ST TRIMESTER from 07/07/2024 FINDINGS: Number of fetuses: 1 position: CEPHALIC Placental location: POSTERIOR low lying placenta with tip measuring 1.5 cm to the internal os. BIOMETRIC DATA: BPD: 4.49cm, 19weeks 4days HC: 16.85cm, 19weeks 3days AC: 13.21cm, 18weeks 5days FL: 3.53cm, 21weeks 1day Cisterna magna: 4mm Cerebellum: 1.98cm Lateral ventricle: 6.2 EFW: 314.74g, 0.66lb, 97% Composite Age: 19weeks 5days MENA: 02/22/2025 Heart Rate: 153bpm Amniotic fluid i: Amount of fluid visually is within normal limits. ANATOMICAL SURVEY: Four-chambered heart: Unremarkable. LVOT: Unremarkable. RVOT: Unremarkable. Left-sided stomach: Unremarkable. urinary bladder: Unremarkable. Bilateral kidneys: Unremarkable. Three-vessel cord: Unremarkable. Cord insertion: Unremarkable. Posterior fossa:Unremarkable. ventricles: Unremarkable. nose: Unremarkable. lips: Unremarkable. palate: Unremarkable. spine: Unremarkable. Two arms and two legs: Unremarkable. IMPRESSION: 1. Single live intrauterine gestation with composite age of 19 weeks 5 days. 2. Normal anatomic survey. 3. Low lying placenta. DATA REPOSITORY:
== END 2024-10-03 03:00 ==
LOC: DI 02:40
PROVIDERS: Visit Provider Advanced Practice Midwife
DX: Z34.92 Encounter for supervision of normal pregnancy, unspecified, second trimester (principal); Z3A.19 19 weeks gestation of pregnancy
CPT/HCPCS: 76805

== ENCOUNTER 2024-12-02 15:25 | Outpatient (REF) | payer MEDICAID, SELFPAY ==
[2024-12-02 17:45] LABS: Cannabinoids THC Negative (Negative); METHADONE URINE SCREEN Negative (Negative)
[2024-12-05 11:56] LABS: Fentanyl Scr w/Rfx Confirm Negative ng/mL (<1)
== END 2024-12-02 15:26 | disposition home or self-care (01) ==
LOC: LBN 15:25
PROVIDERS: Visit Provider Advanced Practice Midwife
DX: Z34.93 Encounter for supervision of normal pregnancy, unspecified, third trimester (principal); Z3A.28 28 weeks gestation of pregnancy
CPT/HCPCS: 80307; 80348

== ENCOUNTER 2024-12-07 02:21 | Outpatient (CLI) | payer MEDICAID, SELFPAY ==
[2024-12-07 11:52] LABS: HCT 36.0 % (36.0-46.0); HGB 12.2 g/dL (11.2-15.7); MCH 31.0 pg (27.0-33.0); MCHC 33.9 % (32.0-36.0); MCV 91 fL (80-95); MPV 8.9 fL (8.0-11.0); Platelet Count 261 10^3/uL (130-400); RBC 3.94 10^6/uL (3.93-5.22); RDW 12.8 % (11.7-14.6); RDW-SD 41.5 fL; WBC 9.12 10^3/uL (4.4-10.8)
[2024-12-07 12:01] LABS: Glucose,1 Hr (Glucola) 97 mg/dL (80-140)
== END 2024-12-07 02:22 | disposition home or self-care (01) ==
LOC: LBO 02:22
PROVIDERS: Advanced Practice Midwife; Visit Provider Advanced Practice Midwife
DX: Z34.92 Encounter for supervision of normal pregnancy, unspecified, second trimester (principal)
CPT/HCPCS: 36415; 82950; 85027

== ENCOUNTER 2024-12-14 14:20 | Outpatient (CLI) | payer MEDICAID, SELFPAY ==
--- NOTE | 2024-12-14 11:50 | DI.US_ITS ---
Exam(s) US OB NI WEIGHT EXAM: US OB NI WEIGHT CLINICAL HISTORY: interval growth O44.42 LOW LYING PLACENTA O09.299 Z34.90. TECHNIQUE: Transabdominal obstetrical ultrasound performed. COMPARISON: US US OB 2-3 TRIMESTER from 10/03/2024 FINDINGS: Number of fetuses: 1 position: CEPHALIC Placental location: There is a grade 1 posterior placenta. The placental tip is greater than 8 cm from the internal os. No evidence of previa. BIOMETRIC DATA: BPD: 7.58cm, 30weeks 3days HC: 28.29cm, 31weeks AC: 25.84cm, 30weeks FL: 6.23cm, 32weeks 2days EFW: 1,653.39g, 3lb 9.37oz, 57.8% Composite Age: 31weeks MENA: 02/15/2025 Heart Rate: 136bpm Amniotic fluid index: 14.95cm. The largest pocket measures 4.8 cm. IMPRESSION: 1. Single live intrauterine gestation as above. 2. There is no evidence of a low-lying placenta. 3. Estimated weight is 1653gms. This is the 58th percentile. 4. Amniotic fluid index is 15 cm. The largest pocket measures 4.8 cm. DATA REPOSITORY:
== END 2024-12-14 14:40 ==
LOC: DI 14:21
PROVIDERS: Visit Provider Advanced Practice Midwife
DX: O44.43 Low lying placenta NOS or without hemorrhage, third trimester (principal); O09.293 Supervision of pregnancy with other poor reproductive or obstetric history, third trimester; Z3A.30 30 weeks gestation of pregnancy
CPT/HCPCS: 76816

== ENCOUNTER 2025-01-20 11:03 | Outpatient (REF) | payer MEDICAID, SELFPAY | END 2025-01-20 11:04 | disposition home or self-care (01) | LOC: LBN 11:03 | PROVIDERS: Visit Provider Advanced Practice Midwife | DX: Z34.93 Encounter for supervision of normal pregnancy, unspecified, third trimester (principal) | CPT/HCPCS: 87081 ==

== ENCOUNTER 2025-02-27 07:42 | Outpatient (CLI) | payer MEDICAID, SELFPAY ==
[2025-02-27 12:57] VITALS: BP 133/83; PULSE 87
[2025-02-27 13:15] VITALS: BP 133/83; PULSE 87; TEMP 36.7
--- NOTE | 2025-02-27 21:14 | W.OBNST ---
Date of service: 02/27/25 Time of Service: 21:14 NST Evaluation Reason for NST Reasons for Nonstress Test: POSTDATES Gestational Age Gestational Age in Weeks and Days: 41 Weeks and 0Days Test and Monitor Explained Test/Monitor Explained: Test Explained and Monitor Explained Vital Signs Blood Pressure: 133/83 Pulse: 87 Temperature: 98.1 F Urine Results Urine Protein: Positive Urine Ketones: Positive Urine Glucose: Negative Urine Blood: Negative NST Information Date on Monitor: 02/27/25 Time on Monitor: 12:50 Date off Monitor: 02/27/25 Time off Monitor: 13:15 Total Time on Monitor: 25 NST Interventions: None NST Evaluation Patient States Movement: Present FHR Baseline: 145 Variability: Moderate 6-25 bpm Accelerations: 15x15 Decelerations: Variable NST Results: Reactive Note Ultrasound Done: NI Total NI: 12.3 Other Pertinent Findings: Presentation (vertex) Coding for NI w/NST: Completed Exam. NST Note Note: Chrissy is here for post dates . NI 12.3. Reactive NST. Inductio of labor discussed. Chrissy is hoping for spontaneous labor. She prefers to wait for induction of labor, NST scheduled in 3 days. NST Reviewed and Verified by: Sangita Hitchcock
[2025-02-27 21:18] VITALS: BP 133/83; PULSE 87; TEMP 36.7
== END 2025-02-27 14:00 ==
LOC: BCD 07:42 → OBS 12:44
PROVIDERS: Visit Provider Advanced Practice Midwife
DX: O48.0 Post-term pregnancy (principal); Z3A.41 41 weeks gestation of pregnancy; R80.9 Proteinuria, unspecified; R82.4 Acetonuria
CPT/HCPCS: 59025

== ENCOUNTER 2025-03-02 08:19 | Outpatient (CLI) | payer MEDICAID, SELFPAY ==
[2025-03-02 10:42] VITALS: BP 133/77; PULSE 88; RESP 16; TEMP 36.6
[2025-03-02 11:05] VITALS: BP 133/77; PULSE 88; TEMP 36.6
--- NOTE | 2025-03-02 14:40 | W.OBNST ---
Date of service: 03/02/25 Time of Service: 14:40 NST Evaluation Reason for NST Reasons for Nonstress Test: POSTDATES Gestational Age Gestational Age in Weeks and Days: 41 Weeks and 3Days Test and Monitor Explained Test/Monitor Explained: Test Explained and Monitor Explained Vital Signs Blood Pressure: 133/77 Pulse: 88 Temperature: 97.9 F NST Information Date on Monitor: 03/02/25 Time on Monitor: 10:38 Date off Monitor: 03/02/25 Time off Monitor: 11:05 Total Time on Monitor: 27 NST Interventions: PO Hydration NST Evaluation Patient States Movement: Present FHR Baseline: 135 Variability: Moderate 6-25 bpm Accelerations: 15x15 Decelerations: None NST Results: Reactive Note Ultrasound Done: N/A. NST Note Note: Reactive NST. Discussed induction of labor and Chrissy's wishes. She prefers natural labor due to long induction last . SVE. 2 cms/ -3/ post. Chrissy discussed with her partner and decided to schedule IOL on 03/05 NST Reviewed and Verified by: Sangita Hitchcock
[2025-03-02 14:42] VITALS: BP 133/77; PULSE 88; TEMP 36.6
== END 2025-03-02 11:40 ==
LOC: OBS 08:44 → WWC 03-03 10:02
PROVIDERS: Visit Provider Advanced Practice Midwife
DX: O48.0 Post-term pregnancy (principal); Z3A.41 41 weeks gestation of pregnancy
CPT/HCPCS: 59025

== ENCOUNTER 2025-03-05 07:25 | Inpatient (IN) | payer MEDICAID, SELFPAY ==
[2025-03-05] VITALS (41 sets, daily range): BP systolic 116–146; BP diastolic 56–84; PULSE 0–91; TEMP 36.9–37.2
[2025-03-05] MEDS: Normal Saline Flush 10 ML SYR IVP (08:30)
--- NOTE | 2025-03-05 08:51 | HPE_ITS ---
Date of service: 03/05/25 Time of Service: 08:51 Assessment and Plan Assessment and plan (1) Encounter for induction of labor: Status: Acute Assessment and plan: A: 34 yo @ 41+6 wks, IOL for postdates, dated by LMP confirmed with 7 wk scan Category 1 tracing, favorable cvx w/mishra score=6 Previous hx of IOL at 40 wks for borderline oligo, taking low dose ASA this gestation Normotensive, nml baseline labs previously, Rh+, serology non-immune x2, GBS+ 1 week ago NI=12 and cephalic/ROP. AGA per 28 wk scan Increased risk for SD and PPH d/t IOL process, EFW ~3900 gms P: R&B of IOL reviewed with pt, admit to L&D, CBC & T&S, UDS d/t family hx ETOH abuse Place IV access in prep for GBS PCN prophylaxis: start when contractions increase Pt supported by , options for IOL reviewed, dilation too advanced to place balloon Pt prefers misoprostel for further cervical ripening and consents to AROM Planning unmedicated but open to epidural if labor goes long Comfort measures as pt desires, anticipate Will offer MMR and VariVax vaccines (2) Post-dates : Status: Acute (3) Group B streptococcal infection during : Status: Acute Assessment and plan: PCN prophylaxis to begin when contractions become regular and appreciated by pt. IV access placed on admission. OB-HPI Labor/Delivery History of Present Illness Reason for Visit: Induction of labor Chief Complaint: Scheduled Induction of Labor Indication for Induction: Post Date (41+6 wks). MENA Calculator Estimated Delivery Date Method Current WG Current Estimate 02/20/25 LMP (Certain) 41w 6d Other Estimates 02/21/25 Ultrasound #1 41w 5d History of Present Expected Delivery Route/Plan - CNM FOB/partner - Cristosmith Delgado (2nd child together). BG Open to all options including unmedicated or epidural Cristo for labor support. Her mother will come from [place] to watch Mendez GBS+, plan PCN prophylaxis in labor Specific Issues/Plan 1. BMI 33 - [id number] 2. Low back pain- normal US, declines PT referral 3. cfDNA screen low risk female, CF screen negative 4. 5P screen+, initial UDS=negative, 28 wk UDS - neg 5. May have had mild gHTN, oligo last preg, will take low dose ASA 6. At 20 wks placenta tip 1.5 cm from cvx, 6a. recheck 32 wks- placental tip 8 cms from os; EFW 58th%, NI 15, cephalic presentation 7. Mild anemia at 35 wks, advised to start oral iron supplement Assessment: History Reviewed & Current Informed Consent Informed Consent: Induction of Labor and Risk,Benefits,Alternatives Discussed Review of Systems All systems reviewed & are unremarkable except as noted in HPI and below PFSH All Active Problems (Updated 03/05/25 @ 09:26 by Talisha Cr) Rubella non-immune status, antepartum (Acute) Maternal varicella, non-immune (Acute) Encounter for induction of labor (Acute) Post-dates (Acute) Group B streptococcal infection during (Acute) Anemia affecting (Acute) Low back pain during (Acute) (Acute) Medical History (Updated 03/05/25 @ 09:26 by Talisha Cr) History of oligohydramnios in prior , currently Low lying placenta nos or without hemorrhage, second trimester resolved 12/14/24 Pelvic pain in Tear of lateral meniscus of right knee (11/16/23) Sprain of ankle, left Chondromalacia, right knee Stiffness of right knee Pelvic pain Surgical History (Updated 06/24/24 @ 10:04 by Lily Ovalle) H/O right knee surgery H/O knee surgery Family History (Updated 09/07/19 @ 15:48 by Sangita Hitchcock CNM) Mother No problems noted. Father Substance abuse Maternal Grandmother Breast cancer Social History (Updated 11/30/19 @ 14:59 by Sangita Hitchcock CNM) Smoking/Tobacco Use Status: Never Second Hand Exposure: No Smoking risk assessment performed?: Yes Alcohol Intake: current Alcohol Intake frequency: holidays/special occasions only Drug use: Never Substance use type: does not use Housing: house Do you feel safe at home: Yes Do you feel safe in your relationship?: Yes History History 2 Para 1 Hx # Term Pregnancies 1 Multiple births 0 Hx # Pregnancies 0 Ectopic pregnancies 0 AB induced 0 Hx Number of Living Children 1 AB spontaneous 0 Past Pregnancies Del. Date GA/Weeks # Preg Succ Route Wgt Sex Labor Lgth Anesth esia Location Prov Complic 12/02/19 40 No vaginal 5 lb 15 oz Male regional other [facility] other Delivery Date: 12/02/19 Last Updated by: Talisha Cr IOL for oligo, epidural, nml Mendez Meds Allergies and Home Medications Allergies Allergy/AdvReac Type Severity Reaction Status Date / Time tree and shrub pollen Allergy Intermediate Other (See Verified 02/24/25 15:24 Comment) Home Medications ?Medication ?Instructions ?Recorded ?Confirmed ?Type vitamins no.180-ferrous 1 tab PO DAILY #90 ta bs 10/02/23 02/28/25 Rx fumarate 27 mg-folic acid 1 mg tablet ( Plus Vitamin-Mineral) aspirin 81 mg tablet,delayed 162 mg (2 x 81 mg) PO RUBENS LY #60 08/12/24 02/28/25 Rx release tabs ferrous sulfate 325 mg (65 mg 325 mg PO DAILY #30 tabs 01/20/25 02/28/25 Rx iron) tablet Exam Physical Exam Vital Signs Reviewed: Yes Constitutional Constitutional: no acute distress and cooperative Detailed Labor and Delivery Exam Dilation: 4 Effacement (%): 70 station: -3 Position: ROP Cervix position: posterior Consistency: soft MISHRA Score(Cervical Ripeness Score): 6 Amniotic Membrane Status: Intact Contraction Frequency(min): irregular Contraction Intensity: Mild Fetus A Heart Rate Baseline: 145 Monitor Accelerations: 15 X 15 Monitor Decelerations: None Variability: Moderate (6-25 BPM) Categories: Category I Est. Weight: 8 lb 9.568 oz Est. Weight: 3900 gms HEENT Exam HEENT Exam: Normal Neck Exam Neck Exam: Normal Chest/Brest/Axilla Exam Chest Exam: Normal Breast Exam Breast Exam: Not Done Respiratory Exam Respiratory Exam: Normal Cardiovascular Exam Cardiovascular Exam: Normal Abdominal Exam Abdominal Exam: Normal (Gravid, nontender) Rectal Exam Rectal Exam: Normal Exam Exam: Normal Extremities Exam Extremities Exam: Normal Back/Spine/Pelvis Exam Back Exam: Normal Pelvis Adequate: Yes (proven to 6 lbs) Skin Exam Skin Exam: Normal Neurological Exam Neurological Exam: Normal Psychiatric Exam Psychiatric Exam: Normal Results Results Group Beta Strep: Positive Blood Type: A+ Rubella Status: Nonimmune Varicella Immunity: Nonimmune Risk Assessment Risk for Shoulder Dystocia Historical/Initial OB: POSITIVE FOR: Pre- BMI>30; NEGATIVE FOR: Pelvic Abnormality, Previous Shoulder Dystocia or Previous Macrosomia 36 Weeks: NEGATIVE FOR: Current Gestational DM, EFW>4500gms or Maternal Weight Gain>40lbs 40 Weeks: POSTIVE FOR: Post Dates; NEGATIVE FOR: EFW> 4500 gms or Maternal Weight Gain >40lb Increased Risk?: Yes Counseling: EFW >2 lbs larger than previous vaginal Delivery Plan @ 36wks: Delivery Plan @ 40 wks: IOL @ 41-42 wks, Risk for Pre-Eclampsia Date Initiated/Initials: Start @ 12 wks. JK Yes, if one or more: POSTIVE FOR: Hx Pre-E/Gest HTN; NEGATIVE FOR: Chronic HTN, Multiple Gestation, Pre-gestational DM, Renal Disease, Systemic Lupus or APA Syndrome Yes, if 2 or more: POSITIVE FOR: BMI>30 and ethinicty; NEGATIVE FOR: Nulliparity, Age>= 35 yrs, >10yr btwn pregnancies, Mother/Sister w/ Pre-E or Previous IUGR Risk for Post- Hemorrhage Initial: NEGATIVE FOR: Multiple Gestation, Previous PPH, Known Clotting Deficiency, Grand Multiparity or Anticoagulation 36 Weeks: NEGATIVE FOR: Anemia, hgb<10, Low platelets(thrombocytopenia), Gestational HTN or Pre-E, Polyhydraminios or EFW>4500gms 40 Weeks: NEGATIVE FOR: Anemia, hgb<10, Low platelets (thrombocytopenia), Gestation HTN or Pre-E, Polyhydraminios or EFW>4500gms At Risk?: Yes (due to induction process, EFW ~ 3900 gms) Counseled re: Active Management: Yes Risks Reviewed Risks Reviewed Upon Admission: Yes
[2025-03-05] MEDS: miSOPROStol 50 MCG TAB PO ×2 (09:07→13:27)
[2025-03-05 09:13] LABS: Abs Immature Grans 0.21 10^3/uL (0.0-0.06); HCT 36.2 % (36.0-46.0); HGB 12.8 g/dL (11.2-15.7); Immature Grans % 2.2 %; MCH 31.9 pg (27.0-33.0); MCHC 35.4 % (32.0-36.0); MCV 90 fL (80-95); MPV 9.5 fL (8.0-11.0); Platelet Count 214 10^3/uL (130-400); RBC 4.01 10^6/uL (3.93-5.22); RDW 13.2 % (11.7-14.6); RDW-SD 43.3 fL; WBC 9.35 10^3/uL (4.4-10.8)
[2025-03-05 09:34] LABS: Cannabinoids THC Negative (Negative); Fentanyl Scr w/Rflx to Conf, U Negative (Negative)
[2025-03-05] MEDS: Penicillin G POT. 5,000,000 UNITS in Normal Saline 100 ML 200 UNITS IVPB (15:07)
--- NOTE | 2025-03-05 16:09 | W.PM.OBNL1 ---
Date of service: 03/05/25 Time of Service: 16:09 Informed Consent Informed Consent: Induction of Labor, Risk,Benefits,Alternatives Discussed and Other (Pt consents to AROM) Pelvic Exam Dilation: 5 Effacement (%): 80 station: -2 Position: ROP Cervix Position: mid Consistency: soft Contractions Monitor Mode: External Contraction Frequency(min): irregular and sporadic Intensity: Mild Fetus A Monitor: External (US) Heart Rate Baseline: 145 Variability: Moderate (6-25 BPM) Categories: Category I Accelerations: Present Decelerations: None Amniotic Membrane Status: Ruptured Rupture Method: Artifical Amniotic Fluid: Clear Amount: scant Date of Membrane Rupture: 03/05/25 Time of Membrane Rupture: 15:53 Assessment and Plan Assessment and plan (1) Encounter for induction of labor: Status: Acute Assessment and plan: A: s/p two doses of miso 50 mcg PO, pt appears comfortable, labor not well established cvx progressed to 5/80% mid/post pelvis, soft & stretchy, ROP, -2/-3 murphy score 8-9, category 1 tracing P: AROM for scant clear fluid, pt and fetus tolerated well Continue to ambulate, position changes to facilitate rotation & descent First dose of PCN prophylaxis infused. Reassess for progress in 2-3 hrs Objective Objective Narrative Objective Narrative: Vital signs stable Pt ambulating in room, voiding qs Calm and conversational Has concerns that this induction will take a long time like last time Is planning to forego regional anesthesia if labor gets going while she isn't tired Subjective Interval history since last seen: Some increased feelings of abdominal tightness, occasional lower abd cramping but overall feeling comfortable. No bleeding or ROM, tolerating oral intake well.
--- NOTE | 2025-03-05 17:59 | W.PM.OBNL1 ---
Date of service: 03/05/25 Time of Service: 18:00 Pelvic Exam Dilation: 7 Effacement (%): 90 station: -1 Cervix Position: mid Contractions Monitor Mode: Palpation Contraction Frequency(min): q4-5 Intensity: Moderate/Strong Fetus A Monitor: Doppler Heart Rate Baseline: 145 FHR Rhythm: Regular Characteristics: Normal Decelerations: None Amniotic Membrane Status: Ruptured Assessment and Plan Assessment and plan (1) Encounter for induction of labor: Status: Acute Assessment and plan: A: IOL for post dates, active labor in multipara P: Pt requests to use tub for comfort, is coping well with contractions Risks for SD and PPH identified and preparations are in place for delivery Second dose PCN due in 30 minutes Anticipate Objective Vital Signs Reviewed: Yes Subjective Interval history since last seen: Pt became more uncomfortable with contractions and rectal pressure at the peak of contractions at 1700, mild nausea during contractions reported. No bleeding or much leakage of fluids, FHT per doptone are reassuring, pans are about every 4-5 minutes.
[2025-03-05] MEDS: Penicillin G POT. 3,000,000 UNITS in Normal Saline 50 ML 100 UNITS IVPB (18:31)
[2025-03-05] MEDS: Oxytocin/Normal Saline 30 UNIT/500 ML BAG 2 UNITS IV (20:10)
[2025-03-05] MEDS: Oxytocin/Normal Saline 30 UNIT/500 ML BAG 95 UNITS IV (20:35)
[2025-03-05] MEDS: Benzocaine 20% 60 ML CAN TP (20:50)
--- NOTE | 2025-03-05 21:17 | OBVDS_ITS ---
Date of service: 03/05/25 Time of Service: 21:17 OB Labor/ Delivery Information Baby A Delivery Delivery Method: Spontaneaous Presentation: Cephalic Cephalic Position: Vertex Vertex Position: Right Occipital Anterior Breech Position: N/A Cord Description-Baby A: 3 Vessels Amniotic Fluid: Clear Quantitative Blood Loss: 400 Delivery Outcome: Liveborn Infant Transferred: Remains with Mother Note: Pt labored in the tub and then got out to receive 2nd dose of PCN IV, FHT per intermittent doptone were stable and reassuring @ 130-140, pt moved around the room and then rested LLP in bed until urges to push began, 2nd stage huddle completed, pt fully dilated and vtx @ +3. After excellent pushing efforts resulted in vtx becoming visible at the introitus it was noted that contractions had decreased in frequency and strength to less than 1 per 5 minutes, low dose pitocin augmentation begun at 2009 with eventual increase in contraction strength for pt to accomplish 25 minutes later over intact perineum a melvin yaw female infant. Shoulders delivered with ease and infant directly placed in mother's arms, pitocin bolus begun, cord clamped and cut by FOB after 3 minutes, cord blood collected and [place] placenta delivered intact with 3VC. Fundal massage firm below umbilicus, right labial laceration extending to introitus approximated and stabilized with several stitches of 3.0 Vicryl placed under topical aerosol anesthetic 20% benzocaine. Lochia minimal, strong family bonding observed, apgars 8/9, latched and at 30 minutes of age, weight 4275 gms. Providers Nurse Child Care Teacher: Talisha Cr Nurse: Nessa Cantu Nurse: Mei Metzger Labor/Delivery Information Number of Babies in Womb: 1 Steroids Given: None Reason Steroids Not Administered: N/A Group Beta Strep: Positive Antibiotics Administered: Yes Number of Doses of Antibiotics: 2 Rubella Status: Nonimmune Blood Type: A+ Varicella Immunity: Nonimmune Maternal Complications: None Shoulder Dystocia: No Stages of Labor Onset of Labor Date: 03/05/25 Onset of Labor Time: 15:30 Complete Dilatation Date: 03/05/25 Complete Dilatation Time: 19:35 Labor - Stage 1 Duration: 4 hours and 5 minutes ROM Baby A: 03/05/25 ROM Baby A: 15:53 ROM Total Time- Baby A: [id number] Infant Delivery Date-Baby A: 03/05/25 Infant Delivery Time-Baby A: 20:33 Labor Stage 2 Duration: 58 minutes Placenta Delivery Date-Baby A: 03/05/25 Placenta Delivery Time-Baby A: 20:42 Labor-Stage 3 Duration: 9 minutes Total Length of Labor-Baby A: 5 hours and 3 minutes Placenta Cultured: No Placenta Status: Delivered Baby A Gender: Female Gestational Status: Term (39-41.6 wks) Gestational Age in Weeks/Days: 41 Weeks and 6 Days weight: 9 lb 6.796 oz Weight Comment: 4275 gms Score-1 Minute Interval(Baby A) Heart Rate-1 minute: 100 BPM or Greater Respiratory Effort- 1 minute: Slow Respiration/Weak Cry Muscle Tone-1 minute: Active Movement Reflex Response-1 minute: Prompt Response Color-1 minute: Bluish Hands or Feet Total Score-1 minute: 8 Score-5 Minute Interval(Baby A) Heart Rate- 5 minute: 100 BPM or Greater Respiratory Effort-5 minute: Spontaneous/Strong Cry Muscle Tone-5 minute: Active Movement Reflex Response-5 minute: Prompt Response Color-5 minute: Bluish Hands or Feet Total Score- 5 minute: 9 Procedure Procedures: Cervical Ripening Cervical Ripening: Misoprostol and Cord Blood Collection Interventions Augmentation , Pitocin rate (mU/min): 2 started in 2nd stage due to decreased contraction pattern ./ Induction Indication: Post Date, Type of Induction: Misoprostol administration: Oral,/ Repair of Laceration
[2025-03-05] MEDS: Methylergonovine 0.2 MG/ML VIAL IM (21:41)
[2025-03-06 00:25] VITALS: BP 121/63; PULSE 76
[2025-03-06 04:59] VITALS: BP 99/64; PULSE 73; RESP 18; TEMP 37.2
[2025-03-06] MEDS: Ibuprofen 600 MG TAB PO ×2 (08:12→13:38)
[2025-03-06] MEDS: Dibucaine 1% 28 GM TUBE TP (08:12)
[2025-03-06] MEDS: Acetaminophen 325 MG TAB 650 MG PO ×2 (08:12→13:38)
[2025-03-06] MEDS: Hamamelis Leaf/Glycerin 100 EACH BOX PR (08:13)
[2025-03-06 08:20] VITALS: BP 132/79; PULSE 74; RESP 18; TEMP 37.2; O2SAT 97
[2025-03-06 12:00] VITALS: BP 111/65; PULSE 76; RESP 17; TEMP 37; O2SAT 97
--- NOTE | 2025-03-06 17:21 | W.PM.OBPNV1 ---
Date of service: 03/06/25 Time of Service: 17:21 Assessment and Plan Assessment and plan (1) Term delivered: Status: Acute Assessment and plan: A: PPD#1, satisfied with experience off to a good start Supports in place at home, P: Desires discharge to home this evening Will offer MMR and Varicella vaccines prior to discharge F/up at 2 & 6 wks Written instructions reviewed and given to pt IUD paragard planned for BCM, possible vasectomy in future (2) Care and examination of lactating mother: Status: Acute Subjective Subjective Patient comments: No complaints, Pain well controlled, Tolerating diet and Flatus present Patient's Mood: happy [place] baby status: Doing well, Nursing well, Rooming in and Strong Bonding Observed [place] feeding status: Exclusively breast feeding Exam Physical Exam Vital signs: Temp Pulse Resp BP Pulse Ox 98.6 F 76 17 111/65 97 03/06/25 12:00 03/06/25 12:00 03/06/25 12:00 03/06/25 12:00 03/06/25 12:00 Vital Signs Reviewed: Yes Constitutional Constitutional: no acute distress and cooperative HEENT Exam HEENT Exam: Normal Neck Exam Neck Exam: Normal Breast Exam Bilateral: Breast Exam: Normal and Soft Nipple Exam: Normal and Uninjured Respiratory Exam Respiratory Exam: Normal Cardiovascular Exam Cardiovascular Exam: Normal Abdominal Exam Abdomen: Other (soft, nontender) Fundal Exam Fundus: Below Umbilicus and Firm Rectal Exam Rectal Exam: Normal Exam Perineum: Intact and Repair Intact Extremities Exam Extremity Exam: Normal, Full ROM and Warm to Touch Back/Spine/Pelvis Exam Back Exam: Normal Skin Exam Skin Exam: Normal Neurological Exam Neurological Exam: Normal Psychiatric Exam Psychiatric Exam: Normal Results Hemoglobin/Hematocrit: Hgb 12.8 g/dL (11.2-15.7) 03/05/25 09:05 Hct 36.2 % (36.0-46.0) 03/05/25 09:05 Abnormal Lab Findings: Abnormal Labs 03/05/25 09:05 Absolute Neutrophils 6.90 H
--- NOTE | 2025-03-06 17:32 | DSE_ITS ---
Date of service: 03/06/25 Time of Service: 17:32 DS: Diagnosis Discharge Diagnosis (1) Term delivered: Status: Acute (2) Care and examination of lactating mother: Status: Acute Discharge Plan Disposition Patient Disposition: Home Condition: Good Discharge Details Reason For Visit: Induction for Postdates Admit Date/Time: 03/05/25 07:25 Admit Provider: Talisha Cr Attending Provider: Talisha Cr Primary Care Provider: Unknown,Unknown Hospital Course Hospital Course: Pt admitted for induction of labor for postdates, accomplished on HD#1 after 2 doses of misprostel and amniotomy, GBS was adequately prophylaxed, nml recovery and course, pt desires discharge today. Home Meds and New Rx's Prescriptions: No Action Plus Vitamin-Mineral 27 mg iron- 1 mg tablet 1 tab PO DAILY Qty: 90 5RF Patient Comments: IUD removed, will start when ferrous sulfate 325 mg (65 mg iron) tablet 325 mg PO DAILY Qty: 30 4RF Discharge Instructions Additional Instructions: Please keep 2 & 6 wk apptointments with the midwives, if you feel you do not require an in-person 2 week visit it may be done via telehealth. Call for any and all concerns or questions. Plan for IUD insertion appointment after 6 wk appointment. Stand Alone Forms: Instructions, BC Post Vaginal Deliver, Portal Information Activity:: Activity as Tolerated Equipment/Supplies:: No Equipment Needed Diet:: Normal Diet OB:DS Summary Summary Vaginal Delivery Method: Spontaneaous Contraception Discussed Contraception Discussed: Yes Contraceptive Plan: IUD, [place] Gender-Baby A: Female weight: 9 lb 6.796 oz Status at Discharge Functional status at discharge: independent ambulation Overall status at discharge: patient is progressing back to baseline Mental Status: mental status grossly normal Speech and Movement: speech and movement normal and speech clear Mood: congruent mood Affect: normal affect Exam Physical Exam Vital signs: Temp Pulse Resp BP Pulse Ox 98.6 F 76 17 111/65 97 03/06/25 12:00 03/06/25 12:00 03/06/25 12:00 03/06/25 12:00 03/06/25 12:00 Constitutional Constitutional: no acute distress and cooperative HEENT Exam HEENT Exam: Normal Neck Exam Neck Exam: Normal Breast Exam Bilateral: Breast Exam: Normal and Soft Respiratory Exam Respiratory Exam: Normal Cardiovascular Exam Cardiovascular Exam: Normal Abdominal Exam Abdomen: Other (soft, nontender) Fundal Exam Fundus: Below Umbilicus and Firm Rectal Exam Rectal Exam: Normal Exam Perineum: Intact and Repair Intact Extremities Exam Extremity Exam: Normal, Full ROM and Warm to Touch Back/Spine/Pelvis Exam Back Exam: Normal Skin Exam Skin Exam: Normal Neurological Exam Neurological Exam: Normal Psychiatric Exam Psychiatric Exam: Normal PFSH All Active Problems (Updated 03/06/25 @ 17:24 by Talisha Cr) Care and examination of lactating mother (Acute) Term delivered (Acute) Rubella non-immune status, antepartum (Acute) Maternal varicella, non-immune (Acute) Medical History (Updated 03/06/25 @ 17:24 by Talisha Cr) Group B streptococcal infection during Post-dates Encounter for induction of labor Low back pain during Anemia affecting History of oligohydramnios in prior , currently Low lying placenta nos or without hemorrhage, second trimester resolved 12/14/24 Pelvic pain in Tear of lateral meniscus of right knee (11/16/23) Sprain of ankle, left Chondromalacia, right knee Stiffness of right knee Pelvic pain Surgical History (Updated 06/24/24 @ 10:04 by Lily Ovalle) H/O right knee surgery H/O knee surgery Family History (Updated 09/07/19 @ 15:48 by Sangita Hitchcock CNM) Mother No problems noted. Father Substance abuse Maternal Grandmother Breast cancer Social History (Updated 11/30/19 @ 14:59 by Sangita Hitchcock CNM) Smoking/Tobacco Use Status: Never Second Hand Exposure: No Smoking risk assessment performed?: Yes Alcohol Intake: current Alcohol Intake frequency: holidays/special occasions only Drug use: Never Substance use type: does not use Housing: house Do you feel safe at home: Yes Do you feel safe in your relationship?: Yes History History 2 2 Para 2 Hx # Term Pregnancies 2 Multiple births 0 Hx # Pregnancies 0 Ectopic pregnancies 0 AB induced 0 Hx Number of Living Children 2 AB spontaneous 0 Past Pregnancies Del. Date GA/Weeks # Preg Succ Route Wgt Sex Labor Lgth Anesth esia Location [facility] 12/02/19 40 No vaginal 5 lb 15 oz Male [facility] other [facility] other 03/05/25 41 Yes vaginal 9 lb 6.79 oz Female 5 hours and 3 minut [facility] Delivery Date: 12/02/19 Last Updated by: Talisha Cr IOL for oligo, epidural, nml Mendez DS: Data Vitals/I&O Vitals and I&O: Vital Signs Temperature 98.6 F 03/06/25 12:00 Temperature Source Forehead 03/06/25 12:00 Pulse 76 03/06/25 12:00 Pulse Rhythm Regular 03/06/25 08:20 Respiratory Rate 17 03/06/25 12:00 Blood Pressure 111/65 03/06/25 12:00 Blood Pressure Mean 80 03/06/25 12:00 Pulse Oximetry 97 03/06/25 12:00 Oxygen Delivery Method Room Air 03/05/25 08:11 Oxygen Flow Rate 0 03/05/25 08:11 Intake & Output 03/05/25 03/06/25 03/06/25 23:59 11:59 23:59 Intake Total 150.667 / 150.667 500 / 500 Output Total 1760 / 2960 1900 / 1900 Balance -1609.333 / -2809.333 -1400 / -1400 Intake: IV 150.667 / 150.667 500 / 500 Output: Urine 1000 / 2200 1900 / 1900 Emesis 760 / 760 Other: Urine Color Pale Data Completed and Pending Pending Labs at Discharge: 03/05/25 03/05/25 08:15 09:05 WBC 9.35 RBC 4.01 Hgb 12.8 Hct 36.2 MCV 90 MCH 31.9 MCHC 35.4 RDW 13.2 Plt Count 214 MPV 9.5 Immature Gran % 2.2 Neutrophils % 73.8 Lymphocytes % 15.0 Monocytes % 7.4 Eosinophils % 1.2 Basophils % 0.4 Nucleated RBC % 0.0 Absolute Neutrophils 6.90 H Absolute Lymphocytes 1.40 Absolute Monocytes 0.69 Absolute Eosinophils 0.11 Absolute Basophils 0.04 Urine Opiates Screen Negative Urine Methadone Screen Negative Urine Fentanyl Screen Negative Ur Barbiturates Screen Negative Ur Tricyclics Screen Negative Ur Amphetamines Screen Negative U Benzodiazepines Scrn Negative Urine Cocaine Screen Negative U Cannabinoids Screen Negative ABO/Rh A Positive Antibody Screen NEGATIVE
[2025-03-06] MEDS: Measles, Mumps, & Rubella Vaccine 0.5 ML VIAL SC (19:56)
[2025-03-06] MEDS: Varicella Virus Vaccine (Live) 0.5 ML SC (19:59)
== END 2025-03-06 21:08 | disposition home or self-care (01) | DRG 807 ==
PROVIDERS: Admitting Provider Advanced Practice Midwife; Visit Provider Advanced Practice Midwife
DX: O48.0 Post-term pregnancy (principal); Z37.0 Single live birth; Z3A.41 41 weeks gestation of pregnancy; O99.824 Streptococcus B carrier state complicating childbirth; O99.02 Anemia complicating childbirth; D64.9 Anemia, unspecified; O70.0 First degree perineal laceration during delivery
CPT/HCPCS: 36415; 80307; 86850; 86900; 86901; 90707; 90716; 59200; 85025; J2210; J2540